=== PATIENT | female | born 1950 | race Caucasian/White ===

== ENCOUNTER 2025-05-08 09:28 | Outpatient (CLI) | payer MEDICARE ==
[2025-05-08 11:06] LABS: Estimated GFR - POC 10.0
== END 2025-05-08 09:29 | disposition home or self-care (01) ==
LOC: CSHCT 09:28
PROVIDERS: ATTEND Student in an Organized Health Care Education/Training Program
DX: R14.0 Abdominal distension (gaseous) (principal); K57.32 Diverticulitis of large intestine without perforation or abscess without bleeding; K44.9 Diaphragmatic hernia without obstruction or gangrene; R16.0 Hepatomegaly, not elsewhere classified
CPT/HCPCS: 36415; 74176; 82565